=== PATIENT | male | born 1995 | race Caucasian/White ===

== ENCOUNTER 2018-02-11 13:29 | Emergency (ER) | payer OTHER ==
[~2018-02-11] VITALS: Ht 165.1 cm; Wt 78.0 kg
[2018-02-11 13:35] VITALS: Ht 165.1 cm; Wt 78.0 kg
[2018-02-11 14:14] VITALS: BP 139/88
== END 2018-02-11 14:13 | disposition home or self-care (01) ==
LOC: ED 13:29
DX: J02.9 Acute pharyngitis, unspecified (principal)